=== PATIENT | female | born 2000 | race Caucasian/White ===

== ENCOUNTER 2024-01-09 10:54 | Emergency (ER) | payer OTHER, SELFPAY ==
[2024-01-09 10:57] VITALS: BP 87/54
[2024-01-09 11:04] VITALS: BMI 23.0
[2024-01-09 11:11] LABS: % Basophils 0.6 % (0-2); % Eosinophils 0.8 % (0-6); % Immature Granulocytes 0.9 % (0-0.5); % Lymphocytes 30.2 % (20.5-51.1); % Monocytes 4.2 % (1.7-9.3); % Neutrophils 63.3 % (42.2-75.2); Absolute Basophils 0.1 10^3/uL (0-0.2); Absolute Eosinophils 0.1 10^3/uL (0-0.7); Absolute Immature Granulocytes 0.1 10^3/uL (0-0.05); Absolute Lymphocytes 2.9 10^3/uL (1.2-3.4); Absolute Monocytes 0.4 10^3/uL (0.1-0.6); Absolute Neutrophils 6.1 10^3/uL (1.4-6.5); Hematocrit 42.1 % (37.0-47.0); Hemoglobin 14.7 g/dL (12.0-16.0); Mean Corp Hgb Conc. 34.9 g/dL (33.0-37.0); Mean Corpuscular Hgb 29.1 pg (27.0-31.0); Mean Corpuscular Volume 83.4 fL (81.0-99.0); Mean Platelet Volume 11.2 fL (7.4-10.4); Nucleated Red Blood Cells % 0 %; Platelet Count 328 10^3/uL (130-400); Red Blood Cell Count 5.05 10^6/uL (4.20-5.40); White Blood Cell Count 9.7 10^3/uL (4.8-10.8)
--- NOTE | 2024-01-09 11:12 | ED.GENMED ---
History of Present Illness
General
Chief Complaint: Dehydration Symptoms
Source: patient and family (Parents at bedside)
Exam Limitations: none
Time Seen by Provider: 01/09/24 11:10
Nursing documentation reviewed up to this point in time: agreed with
History of Present Illness
History of Present Illness:
23-year-old female with no significant past medical history presents via EMS after passing out while running a half marathon. She presents stating she feels nauseous, has not vomited, she states she feels 'numb.' She denies headache, chest pain or
trouble breathing. Denies abdominal pain, she thinks she was incontinent of urine during this episode. She had a [place] granola bar prior to the run and states she has been staying hydrated.
She is a runner, runs daily, since sometimes she gets heart palpitations when she runs.
Mom at bedside says that bystanders saw patient slowed down, start walking, wobbling around in a [place] and then fell down. Pt states she did feel something happening but does not remember actually falling.
Past History
Past History
ED Past Medical History: None
ED Past Surgical History: None
Social History
Tobacco: Non-smoker
Alcohol: None
Personal: Single
Living: with family
Employment: Employed
Review of Systems
Review of Systems
Allergies reviewed?: Yes
All Other Systems: ROS reviewed and negative except as documented in HPI and ROS
Constitutional: Denies fever
EENT: Denies sore throat
Respiratory: Denies cough or trouble breathing
Cardiac: Reports diaphoresis, palpitations and syncope; Denies chest pain
ABD/GI: Reports nausea; Denies abdominal pain, vomiting or diarrhea
: Reports incontinence; Denies dysuria, frequency, difficulty voiding or urgency
Musculoskeletal: Reports no symptoms
Skin: Reports no symptoms
Neurological: Reports no symptoms
Phy Exam
Physical Exam
Physical Exam:
GENERAL: No acute distress. A&Ox3.
CONSTITUTIONAL: Temperature 101.3 p.o
EYES: PERRL, conjunctivae normal
Neck: Supple
ENMT: moist mucus membranes, Pharynx nl
RESPIRATORY: Regular respirations, nonlabored, lungs clear.
CARDIOVASCULAR: Regular rate and rhythm, no murmurs, no rubs.
GI: Soft, nontender, normal BS
MUSCULOSKELETAL: Moves with ease. Well perfused.
SKIN: Warm, dry, pink, beads of sweat on face, sheet damp from diaphoresis
PSYCH: Normal mood and affect. Well kept, interactive and appropriate
NEUROLOGIC: Awake, alert and oriented. Speech clear. Strength equal throughout. No focal neurological deficits
Course
Orders/Labs/Results
Orders:
Orders
01/09/24 11:00
CMP [Comprehensive Metabolic Panel] Urgent
Complete Blood Count/With Diff Urgent
Creatine Phosphokinase Urgent
Comment: ADD
HCG, Serum Qualitative Screen Urgent
Comment: ADD
01/09/24 11:11
Add On- LAB Urgent
Tests Added?: CPK
Add On- LAB Urgent
Tests Added?: serum HCG qualitative
0.9% Sodium Chloride 1000 ml [Nss] 1,000 ml IV BOLUS
01/09/24 11:16
COVID-19 Antigen Urgent
Source: Nasal Swab
D-Dimer Urgent
01/09/24 12:24
CT Chest Pe Study Urgent
Comment:
Reason For Exam: syncope, elevated dimer
01/09/24 12:36
0.9% Sodium Chloride 1000 ml [Nss] 1,000 ml IV BOLUS
Abnormal Lab Results
01/09/24 01/09/24 01/09/24
11:00 11:13 11:16
MPV 11.2 H fL
(7.4-10.4)
Abs Immat Gran (auto) 0.1 H 10^3/uL
(0-0.05)
Immature Gran % 0.9 H %
(0-0.5)
D-Dimer 2.46 H ug/mlFEU
(0.00-0.50)
Sodium 147 H mmol/L
(135-145)
Chloride 111 H mmol/L
(98-107)
Carbon Dioxide 19 L mmol/L
(22-30)
Creatinine 1.8 H mg/dL
(0.6-1.0)
Glucose 120 H mg/dl
(70-99)
Calcium 10.9 H mg/dl
(8.4-10.2)
AST 49 H U/L
(14-36)
Creatine Kinase 172 H U/L
(30-135)
Total Protein 9.3 H g/dl
(6.3-8.2)
Albumin 5.7 H g/dl
(3.5-5.0)
POC Glucose 134 H mg/dl
(70-99)
01/09/24 11:00
01/09/24 11:00
Vital Signs
Initial and Last Documented VS:
Initial Vital Signs
Temp Pulse Resp BP Pulse Ox
100.2 F 127 22 87/54 95
01/09/24 10:57 01/09/24 10:57 01/09/24 10:57 01/09/24 10:57 01/09/24 10:57
Last Documented Vital Signs
Temp Pulse Resp BP Pulse Ox
98.5 F 67 15 111/65 100
01/09/24 14:29 01/09/24 14:00 01/09/24 14:00 01/09/24 14:00 01/09/24 14:00
Iron Caster consulted with Physician
Iron Caster consulted with physician?: Yes
Name of Physician Consulted: Venkatesh
MDM/Problems Addressed
Differential Diagnosis Includes:
Dehydration, heat exhaustion, viral illness, PE
MDM/Problems Addressed:
23-year-old female with no significant past medical history presents via EMS after passing out while running a half marathon. She presents stating she feels nauseous, has not vomited, she states she feels 'numb.' She denies headache, chest pain or
trouble breathing. Denies abdominal pain, she thinks she was incontinent of urine during this episode. She had a [employer] granola bar prior to the run and states she has been staying hydrated.
She is a runner, runs daily, since sometimes she gets heart palpitations when she runs.
Mom at bedside says that bystanders saw patient slowed down, start walking, wobbling around in a [place] and then fell down. Pt states she did feel something happening but does not remember actually falling.
Patient arrived with a blood pressure of 78 systolic and a heart rate of 138 sinus on the monitor
EKG sinus tachycardia. IV fluids running wide open
11:15 AM
Patient feeling better, systolic blood pressure 98, heart rate 104. Temp 101.3 by this examiner
Patient has no risk factors for PE, no chest pain or shortness of breath
12:30 PM:
D dimer elevated
HCG neg
CBC unremarkable
CMP Creat elevated 1.8. most likely pre renal
CPK mild elevation 172 this and other abnormalities most likely from hemoconcentration/dehydration
After IVFs Temp recheck 98.3
1:45 PM
PE study is negative for PE
2 L of IV fluids and, patient feeling much better
Plan: Discharge, rest for 2 days, follow-up with your PCP in 3 to 4 days for repeat of lab work
Case discussed with Dr. Riddle who agrees with assessment and plan
VSS
Pt ambulated out with normal gait at discharge
*Critical Care Note
Total Time (30-74mins, 75-104mins- exclusive of procedures): Not Applicable
ED Attending Note
-
Portions of this chart may have been created with voice recognition software.� Occasional wrong word or��sound alike� substitutions may have occurred due to the inherent limitations of voice recognition software.
Discharge Plan
Departure
Patient Disposition: Home (Routine Discharge)
Date of Disposition: 01/09/24
Time of Disposition: 13:47
Patient with high blood pressure during this ER visit?: No
Condition: Good
Discharge Problem:
Exhaustion, heat, due to water depletion, Acute dehydration
Instructions: Dehydration, Adult (DC), Heat Exhaustion and Heat Stroke (DC)
Prescriptions:
No Action
amoxicillin-pot clavulanate 400 MG/5 ML suspension for reconstitution
400 mg PO BID Qty: 100 0RF
Referrals:
My Brady CRNP [Family Provider] - Follow up in 2-3 days
Activity Restrictions/Additional Instructions:
Talk to your doctor in 3-5 days, have your blood work rechecked, discuss need (or not) for Holter Monitor to watch your heart rate for a period.
Rest today and tomorrow.
No running or sports or strenuous activity until cleared by your doctor.
Drink at least 8 eight oz glasses water/fluid daily.
Return here immediately for feeling faint, dizzy, chest pains, or feeling sicker in any way.
Interventions
Interventions:
*Risk Screen - Suicide Last Done: 01/09/24 11:04
*General Assessment Last Done: 01/09/24 11:04
*Neglect/Abuse Screening Last Done: 01/09/24 11:04
ED- Fall Risk Assessment Last Done: 01/09/24 11:05
*ED COVID-19 Vaccine History Last Done: 01/09/24 11:09
*Nursing Disposition Last Done: 01/09/24 14:29
ED- Cardiac Assessment Last Done: 01/09/24 11:05
ED- Neurological Assessment Last Done: 01/09/24 11:05
ED- Pulmonary Assessment Last Done: 01/09/24 11:05
Discharge Date and Time
Discharge Date/Time: 01/09/24 14:36
Print Language: [email or web address]
[2024-01-09] MEDS: NSS 1000 IV ×2 (11:14→13:35)
[2024-01-09 11:15] LABS: Glucose - Point of Care 134 mg/dl (70-99)
[2024-01-09 11:25] LABS: ALT (SGPT) 31 U/L (0-35); AST (SGOT) 49 U/L (14-36); Albumin 5.7 g/dl (3.5-5.0); Alkaline Phosphatase 87 U/L (38-126); Blood Urea Nitrogen 17 mg/dl (7-17); Calcium 10.9 mg/dl (8.4-10.2); Carbon Dioxide 19 mmol/L (22-30); Chloride 111 mmol/L (98-107); Estimated Creatinine Clearance 41 ml/min; Glucose 120 mg/dl (70-99); Potassium 4.4 mmol/L (3.5-5.1); Sodium 147 mmol/L (135-145); Total Protein 9.3 g/dl (6.3-8.2)
[2024-01-09 11:50] LABS: COVID-19 Antigen Negative (Negative)
[2024-01-09 11:50] LABS: Creatine Phosphokinase 172 U/L (30-135); HCG, Serum Qualitative Screen Negative
[2024-01-09 12:00] VITALS: BP 99/58
[2024-01-09 12:19] LABS: D-Dimer 2.46 ug/mlFEU (0.00-0.50)
[2024-01-09 13:00] VITALS: BP 108/67
[2024-01-09 14:00] VITALS: BP 111/65
== END 2024-01-09 14:36 | disposition home or self-care (01) ==
LOC: EMR 10:54
PROVIDERS: Registered Nurse; EMERGENCY PHYSICIAN Student in an Organized Health Care Education/Training Program; FAMILY PHYSICIAN Nurse Practitioner Adult Health
DX: T67.5XXA Heat exhaustion, unspecified, initial encounter (principal); E86.9 Volume depletion, unspecified; E86.0 Dehydration; X30.XXXA Exposure to excessive natural heat, initial encounter
CPT/HCPCS: 99284; 71275; 80053; 82550; 82962; 84703; 85025; 85379; 87811; 93005; Q9967